=== PATIENT | male | born 1995 | race Two or more races ===

== ENCOUNTER 2024-09-18 20:49 | Emergency (ER) | payer SELFPAY ==
[2024-09-18 20:52] VITALS: BP 148/73; PULSE 100; RESP 18; TEMP 37.1; O2SAT 96; BMI 24.4
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
== END 2024-09-18 21:23 ==
PROVIDERS: Emergency Provider Emergency Medicine
DX: Z02.89 Encounter for other administrative examinations (principal)
CPT/HCPCS: 99281